=== PATIENT | male | born 1995 | race Caucasian/White ===

== ENCOUNTER 2017-10-24 16:11 | Emergency (ER) | payer OTHER ==
[~2017-10-24] VITALS: Ht 180.3 cm; Wt 82.5 kg
[2017-10-24] MEDS ORDERED: DIVALPROEX SOD250 M1 PO (16:19)
[2017-10-24] MEDS ORDERED: TRAZODONE HCL100 MG PO (16:19)
[2017-10-24] MEDS ORDERED: AMOXICILLIN500 MG PO (16:19)
[2017-10-24] MEDS ORDERED: NORCO 5-325 TA1 EACH PO (16:19)
[2017-10-24] MEDS ORDERED: PRAZOSIN HCL2 MG PO (16:19)
[2017-10-24] MEDS ORDERED: ESCITALOPRAM OX20 MG PO (16:19)
[2017-10-24] MEDS ORDERED: PREDNISONE20 MG PO (16:54)
[2017-10-24] MEDS ORDERED: CALAMINE180 ML TOP (16:54)
[2017-10-24] MEDS ORDERED: ALLERGY MEDICAT25 MG PO (16:54)
== END 2017-10-24 17:06 | disposition home or self-care (01) ==
LOC: ED 16:11
DX: L30.9 Dermatitis, unspecified (principal); F17.200 Nicotine dependence, unspecified, uncomplicated; Z79.899 Other long term (current) drug therapy; Z79.2 Long term (current) use of antibiotics
CPT/HCPCS: 99283; J7512; Q0163

== ENCOUNTER 2017-11-23 13:19 | Observation (INO) | payer OTHER ==
[~2017-11-23] VITALS: Ht 180.3 cm; Wt 81.7 kg
[~2017-11-23 13:19] MED LIST: ALLERGY MEDICAT25 MG PO; AMOXICILLIN500 MG PO; CALAMINE180 ML TOP; DIVALPROEX SOD250 M1 PO; ESCITALOPRAM OX20 MG PO; NORCO 5-325 TA1 EACH PO; PRAZOSIN HCL2 MG PO; PREDNISONE20 MG PO; TRAZODONE HCL100 MG PO
--- NOTE | 2017-11-23 16:25 | NUR ---
PT ARRIVED TO FLOOR FROM ER VIA STRETCHER. ORIENTED TO ROOM AND CALL LIGHT. PT COMPLAINING OF LEFT LOWER QUADRANT PAIN. PAIN 10.
--- NOTE | 2017-11-23 16:45 | NUR ---
CALLED MD REGARDING PTS PAIN. MD WANTING TO TRY BENTYL AND TYLENOL FOR PAIN AT THIS TIME.
--- NOTE | 2017-11-23 16:55 | NUR ---
PT ANXIOUS AND UPSET ABOUT HIS ABDOMINAL PAIN. STATED, "I CAN GO HOME AND SMOKE AND GET BETTER PAIN CONTROL THAN THIS." DISCUSSED PLAN OF CARE. WILL CONTINUE TO EDUCATE PT ON PLAN OF CARE.
--- NOTE | 2017-11-23 17:30 | NUR ---
PT CONTINUES TO BE UPSET REGARDING PAIN MEDICATION. STATED, "CAN I GET ANYTHING ELSE FOR PAIN YET?"
--- NOTE | 2017-11-23 18:22 | NUR ---
PT STATED, "I NEED TO GET SOMETHING ELSE FOR PAIN OR IM LEAVING." SPOKE WITH MD. ORDER GIVEN TO GIVE NORCO PO. PT AGREEABLE TO TRY NORCO.
--- NOTE | 2017-11-23 18:57 | NUR ---
IN ROOM TO CHECK ON PT. PT STATED, "THAT MEDICATION HASNT HELPED MY PAIN." DISCUSSED HOW LONG IT TAKES FOR ORAL MEDICATION TO START WORKING. PT VERBALIZED UNDERSTANDING. WHILE TALKING TO PT HE REMAINED ON HIS PHONE THROUGHOUT CONVERSATION.
--- NOTE | 2017-11-23 19:40 | NUR ---
PT CALLED. SAID HE WANTS TO LEAVE, WANTS MORE PAIN MEDS. ASKED HIM ABOUT HIS PAIN. SAID HE WANTS TO GO HOME AND SMOKE WEED. ENCOURAGED PT TO KEEP DRINKING HIS MIRALAX, HE HAD A SCOPE PLANNED IN THE MORNING TO DETERMINE HIS BLEED. HE STATED HE UNDERSTOOD.
--- NOTE | 2017-11-23 20:09 | NUR ---
PT TO DESK AT 1957 FULLY DRESSED. TOLD RN THAT HE WAS "LEAVING". ASKED PT IS HE TOOK HIS IV OUT, HE SAID NO, BUT WENT INTO HIS ROOM AND HE TOOK HIS COAT OFF AND IV WAS DC'D INTACT. PT TOLD TO KEEP THE PRESSURE DRESSING ON FOR AT LEAST AN HOUR. TRIED TO ENCOURAGE HIM TO STAY BUT HE SAID HE HAD TO LEAVE. 2004 AMBULATED PT OUT TO THE FRONT. AGAIN TRIED TO HAVE HIM STAY BUT HE SAID NO, HE NEEDED TO LEAVE. DENIED NAUSEA, DENIED DIZZINESS. STATED THAT HE WAS HAVING LIQUID STOOLS BECAUSE OF DRINKING THE BOWEL PREP, BUT DENIED THAT THEY WERE BLOODY, OR BLACK. TG, CHARGE NURSE, NOTIFIED DR. LEWIS.
== END 2017-11-23 20:00 | disposition left against medical advice (07) ==
LOC: ED 13:19 → MS 13:21
PROVIDERS: ADMIT Internal Medicine
DX: K92.1 Melena (principal); R10.9 Unspecified abdominal pain; F17.210 Nicotine dependence, cigarettes, uncomplicated; F20.0 Paranoid schizophrenia; D68.0 Von Willebrand disease; Z79.899 Other long term (current) drug therapy; Z53.21 Procedure and treatment not carried out due to patient leaving prior to being seen by health care provider; Z98.818 Other dental procedure status
CPT/HCPCS: 36415; 74177; 80053; 85025; 85610; 85730; 86850; 86900; 86901; 86920; 96361; 96374; 96375; 96376; 99285; G0378; J2270; J2405; J7040; J7120; Q9967

== ENCOUNTER 2017-11-25 16:40 | Emergency (ER) | payer OTHER ==
[~2017-11-25] VITALS: Ht 180.3 cm; Wt 81.7 kg
[2017-11-25] MEDS ORDERED: PENICILLIN V P500 MG PO (16:52)
== END 2017-11-25 18:00 | disposition home or self-care (01) ==
LOC: ED 16:40
DX: D68.0 Von Willebrand disease (principal); R10.9 Unspecified abdominal pain; F17.200 Nicotine dependence, unspecified, uncomplicated; Z79.899 Other long term (current) drug therapy; Z79.2 Long term (current) use of antibiotics
CPT/HCPCS: 71046; 80053; 81001; 85025; 85610; 85730; 96361; 96374; 99283; J2405; J7030